=== PATIENT | male | born 1930 | race Caucasian/White ===

== ENCOUNTER → 2016-07-04 | Outpatient (REF) ==
[~2016-07-04] MED LIST: /MEMA10TA PO; ALLO300T2 PO; AMLO10TA2 PO; AMLO25TA PO; APRESOLINE PO; ASPI1TAB PO; ASPI81TA4 PO; ASPI81TAEC PO; BISA10SU PR; CALC0.25 PO; CERETAB PO; CERTTAB3 PO; CLONI1TA TOP; COLA100C PO; COZA50TA PO; DARB100SYR IV; DONETAB5 PO; DONETAB6 PO; ESCI10TA2 PO; ESCI5TAB PO; FEBU40TA PO; FERR325T3 PO; FINA5TAB2 PO; FURO40TA2 PO; GLYB5TAB5 PO; HYDR-4267 PO; HYDR10TAB PO; HYDR25T PO; HYDR50TA PO; IPRA1SOL47 NEB; IPRASOL4 NEB; LEVA250T PO; LOSA100T36 PO; METO-346 PO; METO12TA PO; MILKSUS PO; MIRT15TA3 PO; NAME5TAB13 PO; NEPHTAB PO; RENATAB5 PO; RENV2TAB PO; SENN1TAB2 PO; SIMV40TA2 PO; TAMS0.4C PO; TYLE325T5 PO; VITA100041 PO; nephrovite PO
--- NOTE | 2016-07-04 10:35 | REP ---
PARTIAL LEFT HIP, ONE VIEW: HISTORY: Pain. There is no acute fracture or dislocation. There is narrowing of the joint space with associated osteophyte formation. The bony structure is osteopenic. IMPRESSION: There is no acute fracture or dislocation. Signed by Alessio Delacruz MD 07/04/2016 10:37 A
== END | disposition home or self-care (01) ==
PROVIDERS: ATTEND Internal Medicine
DX: M25.552 Pain in left hip (principal)

== ENCOUNTER → 2016-07-16 | Outpatient (REF) | payer BC, MEDICARE ==
[2016-07-16 09:16] LABS: MEAN CORPUSCULAR HGB CONC 33.5 g/dl (32.0-36.5); MEAN CORPUSCULAR VOLUME 95.4 fl (80.0-96.0); RED CELL DISTRIBUTION WIDTH 14.3 % (11.5-14.5); WHITE BLOOD COUNT 8.1 K/mm3 (4.0-10.0)
[2016-07-16 09:39] LABS: CALCIUM LEVEL 8.7 MG/DL (8.8-10.2); CREATININE FOR GFR 5.87 MG/DL (0.70-1.30); GLOMERULAR FILTRATION RATE 9.8 (>35); POTASSIUM SERUM 4.1 MEQ/L (3.5-5.1)
== END | disposition home or self-care (01) ==
PROVIDERS: ATTEND Internal Medicine
DX: N18.6 End stage renal disease (principal); D63.1 Anemia in chronic kidney disease

== ENCOUNTER → 2016-09-27 | Outpatient (REF) | payer MEDICARE, BC ==
[~2016-09-27] MED LIST changes: +BISA10SU27 PR; -COLA100C PO; +COLA100C3 PO; +ENEM1ENE4 PR; +ENSU-12 PO; +FEVE650S3 PR; +IPRASOL4 INH; +LIDO2.5C15 TOP; +NEPRLIQ3 PO; +RENV0.8P PO; +SENN8.6T54 PO; +VITA100037 PO
== END ==
LOC: M LAB 13:57
PROVIDERS: ATTEND Internal Medicine
DX: N18.6 End stage renal disease (principal); D64.9 Anemia, unspecified

== ENCOUNTER 2016-09-29 14:48 | Observation (INO) | payer MEDICARE, BC ==
[~2016-09-29] VITALS: Ht 172.7 cm; Wt 74.0 kg
[~2016-09-29 14:48] MED LIST changes: -BISA10SU27 PR; -ENEM1ENE4 PR; -ENSU-12 PO; -FEVE650S3 PR; -IPRASOL4 INH; -LIDO2.5C15 TOP; -NEPRLIQ3 PO; -RENV0.8P PO; -SENN8.6T54 PO; -VITA100037 PO
--- NOTE | 2016-09-29 15:29 | REP ---
Portable chest, 03:19 p.m., single AP view, the patient semi upright: There is a right pleural effusion. This has increased in size compared to the portable study of 05/29/2016. The right upper lobe is clear. Left lung is clear. Cardiac size appears enlarged, however there is magnification from portable positioning. Impression: Right pleural effusion. Signed by Ludin Montanez MD 09/29/2016 03:20 P
[2016-09-29 15:30] LABS: BASO # 0.1 K/mm3 (0.0-0.2); BASO % 0.6 % (0.0-1.0); EOS # 0.2 K/mm3 (0.0-0.50); EOS % 1.9 % (0.0-3.0); LARGE UNSTAINED CELL # 0.1 K/mm3 (0.0-0.4); LARGE UNSTAINED CELL % 0.9 % (0.0-4.0); LYMPH % 9.6 % (24.0-44.0); MEAN CORPUSCULAR HEMOGLOBIN 30.7 pg (27.0-33.0); MEAN CORPUSCULAR HGB CONC 32.2 g/dl (32.0-36.5); MEAN CORPUSCULAR VOLUME 95.4 fl (80.0-96.0); MONO # 0.4 K/mm3 (0.0-0.8); MONO % 4.5 % (0.0-5.0); NEUTROPHILS # 7.7 K/mm3 (1.8-7.7); NEUTROPHILS % 82.4 % (36.0-66.0); PLATELET COUNT, AUTOMATED 271 k/mm3 (150-450); RED CELL DISTRIBUTION WIDTH 13.9 % (11.5-14.5); WHITE BLOOD COUNT 9.3 K/mm3 (4.0-10.0)
--- NOTE | 2016-09-29 15:49 | REP ---
CT of the brain without IV contrast: Comparison is 12/06/2013. There is no hemorrhage. There is no edema, mass effect or midline shift. The cortical stripe is unremarkable. The sulci and ventricles are diffusely enlarged, unchanged, compatible with diffuse volume loss. There is opacification of water to ethmoid sinus air cells. The visualized paranasal sinuses and mastoids are otherwise. Impression: There is no hemorrhage, acute infarct or mass. There is chronic diffuse volume loss. This is unchanged. There is opacification of a few ethmoid sinus air cells, compatible with mild sinusitis. Signed by Ludin Montanez MD 09/29/2016 03:40 P
[2016-09-29 15:54] LABS: ALKALINE PHOSPHATASE 139 U/L (45-117); ALT/SGPT 11 U/L (12-78); AST/SGOT 9 U/L (15-37); BILIRUBIN,DIRECT 0.1 MG/DL (0.0-0.2); BILIRUBIN,TOTAL 0.3 MG/DL (0.2-1.0); BLOOD UREA NITROGEN 32 MG/DL (7-18); CALCIUM LEVEL 8.8 MG/DL (8.8-10.2); CARBON DIOXIDE LEVEL 32 MEQ/L (21-32); CHLORIDE LEVEL 97 MEQ/L (98-107); CREATININE FOR GFR 3.63 MG/DL (0.70-1.30); GLUCOSE, FASTING 179 MG/DL (83-110); POTASSIUM SERUM 3.8 MEQ/L (3.5-5.1)
[2016-09-29] MEDS ORDERED: SENN8.6T54 PO (17:09)
[2016-09-29] MEDS ORDERED: HYDR10TAB PO (17:09)
[2016-09-29] MEDS ORDERED: NEPRLIQ3 PO (17:09)
[2016-09-29] MEDS ORDERED: ENSU-12 PO (17:12)
[2016-09-29] MEDS ORDERED: RENV0.8P PO (17:12)
[2016-09-29] MEDS ORDERED: RENATAB5 PO (17:17)
[2016-09-29] MEDS ORDERED: LIDO2.5C15 TOP (17:17)
[2016-09-29] MEDS ORDERED: ASPI81TA4 PO (17:17)
[2016-09-29] MEDS ORDERED: CERTTAB3 PO (17:17)
[2016-09-29] MEDS ORDERED: FINA5TAB2 PO (17:17)
[2016-09-29] MEDS ORDERED: IPRASOL4 INH (17:17)
[2016-09-29] MEDS ORDERED: ENEM1ENE4 PR (17:22)
[2016-09-29] MEDS ORDERED: FEVE650S3 PR (17:22)
[2016-09-29] MEDS ORDERED: VITA100037 PO (17:22)
[2016-09-29] MEDS ORDERED: BISA10SU27 PR (17:22)
[2016-09-29] MEDS ORDERED: TYLE325T5 PO (17:22)
[2016-09-29] MEDS ORDERED: FLEET ENEMA PR PRN (18:30)
[2016-09-29] MEDS ORDERED: IPRATROPIUM 0.5MG/ALBUTEROL 2.5MG INH SOL UD 3ML (DUONEB)(J7620) INH PRN (18:30)
[2016-09-29] MEDS ORDERED: BISACODYL 10 MG SUPP PR PRN (18:30)
--- NOTE | 2016-09-29 18:35 | CR.PDOC ---
[facility] Consultation Consultation HISTORY AND PHYSICAL Date of admission: 09/29/2016 PCP: Dr. Galloway at [facility], but otherwise Dr. Koch Chief complaint: Unresponsive episode at dialysis HPI: 86-year-old male with end-stage renal disease on hemodialysis, chronic diastolic CHF, chronic right-sided pleural effusion, secondary hyperparathyroidism, chronic anemia, hypertension, history of nonsustained V. tach, severe aortic stenosis, dementia, PVD status post femoropopliteal, carotid disease status post endarterectomy, diabetes mellitus type 2, BPH who experienced an unresponsive episode at dialysis. Per report, the patient was approximately two thirds of his way through dialysis, when his thought that he was making funny noises, and called the nurse over. Reportedly, the patient did not report on to a sternal rub, so that nurse began doing compressions. While she was doing compressions, they also opened up the fluids wide open and the patient received 1300 mL. When EMS arrived, his systolic blood pressure was 90. Upon interview with the , she tells me that although he lives at [facility] without her, she is the one who transports him to dialysis. She states that when she picked him up this morning, he was his normal self. He did not have any further episodes in the emergency department. Per his , his mental status seems to be at baseline. Past medical history: end-stage renal disease on hemodialysis, chronic diastolic CHF, chronic right-sided pleural effusion, secondary hyperparathyroidism, chronic anemia, hypertension, history of nonsustained V. tach, severe aortic stenosis, dementia, PVD status post femoropopliteal, carotid disease status post endarterectomy, diabetes mellitus type 2, BPH Past surgical history: AV fistula placement, femoropopliteal, CEA Family history: Bladder and lung cancer Social history: The patient lives at [facility]. He has a remote history of smoking. He does not currently drink. Allergies: No known drug allergies Review of systems: Unable to complete secondary to the patient's severe dementia. Home meds: See below Physical exam: Vital signs: Blood pressure 198/91, HR 86, temperature 97.7, O2 sat 100%, RR Elizabeth Gen.: awake, no acute distress, responds to verbal stimuli Eyes: Extraocular movements intact, normal sclera ENT: Moist mucous membranes Cardiovascular: RRR, harsh systolic murmur Lungs: clear to auscultation bilaterally, no rales, rhonchi, or wheeze Abdomen: Soft, NT/ND, normal BS Extremities: No peripheral edema Neuro: alert and oriented to person only, normal speech; per , this is baseline; the patient follows commands Psych: The patient did not seem to want to participate in the interview, and several times told me know when I asked him a question. He did tell me his full name, but was clearly exasperated that I kept asking him. Labs and radiology: See below CBC, BMP, lactate, ammonia, troponin were all unremarkable. TSH was at the upper limits of normal CT of the head was unremarkable Chest x-ray shows right pleural effusion Blood cultures are pending Assessment and plan: 86-year-old male with end-stage renal disease on hemodialysis, chronic diastolic CHF, chronic right-sided pleural effusion, secondary hyperparathyroidism, chronic anemia, hypertension, history of nonsustained V. tach, severe aortic stenosis, dementia, PVD status post femoropopliteal, carotid disease status post endarterectomy, diabetes mellitus type 2, BPH who experienced an unresponsive episode at dialysis. 1. Altered mental status/unresponsive episode: Upon my interview, the patient seemed to be at baseline, which is confirmed by his . Upon receiving the history from his dialysis episode, it sounds that most likely, he had hypotension secondary to dialysis, and this caused his episode. After receiving over a liter of fluid, his systolic blood pressure was 90 when EMS arrived. At this time, we will monitor the patient in the PCU on telemetry. He'll be closely monitored for any further episodes. We will continue to trend troponins. 2. Hypertension: The patient has a history of chronic hypertension, but appears to have experienced some transient hypotension during dialysis today. His blood pressure in the ER has been around 200 systolic, so at this time, we will resume his home hydralazine. 3. End-stage renal disease on hemodialysis: We will continue the patient's home Renvela. I have consulted Dr. Norton, who has agreed to see the patient tomorrow. 4. Chronic diastolic CHF: The patient currently appears compensated, but we will have to monitor him closely, as he experienced hypotension during dialysis , and subsequently received over a liter of fluid. 5. Chronic right-sided pleural effusion: This is a known issue, and is noted on today's chest x-ray. The does report one prior episode of having this drained. At this time, the patient does not seem to be experiencing any respiratory distress. We will continue to monitor him for such. 6. Dementia: Per the , his mental status is currently at baseline which is more or less oriented only to self. 7. PVD status post femoropopliteal, carotid disease status post CEA: Continue home aspirin. 8. Diabetes mellitus type 2: The confirms that he does have diabetes, but she does not believe he is currently on any medication for it. There are no diabetic medicines on his home med list. At this time, we will use sliding scale insulin as needed. 9. BPH: Continue home Proscar. DVT prophylaxis: Heparin Dispo: Place in observation status on the service of Dr. Lizama CODE STATUS: DNR/DNI, healthcare power of immigration attorney is his Vital Signs/I&O Vital Signs Date Time Temp Pulse Resp B/P Pulse Ox O2 Delivery O2 Flow Rate FiO2 09/29/16 18:23 84 16 100 09/29/16 18:13 185/82 09/29/16 17:23 97.7 09/29/16 15:26 Room Air Laboratory Data Labs 24H Laboratory Tests 2 09/29/16 15:13: Aspartate Amino Transf (AST/SGOT) 9L, Alanine Aminotransferase (ALT/SGPT) 11L, Alkaline Phosphatase 139H, Total Bilirubin 0.3, Direct Bilirubin 0.1, Albumin 3.2, Ammonia 10, White Blood Count 9.3, Red Blood Count 3.63L, Hemoglobin 11.2L , Hematocrit 34.7L, Mean Corpuscular Volume 95.4, Mean Corpuscular Hemoglobin 30.7, Mean Corpuscular Hemoglobin Concent 32.2, Red Cell Distribution Width 13.9 , Platelet Count 271, Neutrophils (%) (Auto) 82.4H, Lymphocytes (%) (Auto) 9.6L , Monocytes (%) (Auto) 4.5, Eosinophils (%) (Auto) 1.9, Basophils (%) (Auto) 0.6 , Neutrophils # (Auto) 7.7, Lymphocytes # (Auto) 1.0L, Monocytes # (Auto) 0.4, Eosinophils # (Auto) 0.2, Basophils # (Auto) 0.1, Calcium Level 8.8, Creatine Kinase MB 1.0, Creatine Kinase MB Relative Index 4.76H, Lactic Acid Level 1.9, Large Unclassified Cells # 0.1, Large Unclassified Cells % 0.9, Thyroid Stimulating Hormone (TSH) 3.820H, Total Creatine Kinase 21L, Total Protein 7.0, Troponin I 0.03 CBC/BMP Laboratory Tests 09/29/16 15:13 Red Blood Count 3.63 L, Mean Corpuscular Volume 95.4, Mean Corpuscular Hemoglobin 30.7, Mean Corpuscular Hemoglobin Concent 32.2, Red Cell Distribution Width 13.9, Neutrophils (%) (Auto) 82.4 H, Lymphocytes (%) (Auto) 9.6 L, Monocytes (%) (Auto) 4.5, Eosinophils (%) (Auto) 1.9, Basophils (%) (Auto ) 0.6, Neutrophils # (Auto) 7.7, Lymphocytes # (Auto) 1.0 L, Monocytes # (Auto) 0.4, Eosinophils # (Auto) 0.2, Basophils # (Auto) 0.1 Microbiology Microbiology 09/29/16 Blood Culture, Received Pending Allergies Coded Allergies: No Known Drug Allergy (Verified Allergy, 11/02/12) Home Medications Scheduled (Nepro with Carb Steady) 1 Liq Liq 240 ML PO 4XWK (Reported) takes at noon on thursday, thursday, , and thursday (Ensure Clear) 1 Liq Liq 200 ML PO 3XW (Reported) thursday, thursday, and thursday (Aspirin EC Low Dose) 81 Mg Tab 81 MG PO DAILY (Reported) (Certavite/Antioxidants) 1 Tab Tab 1 TAB PO DAILY (Reported) (Aniya-Benito) 1 Tab Tab 1 TAB PO DAILY (Reported) (Lidocaine/Prilocaine 2.5-2.5 %) 1 Cre Cre 1 DOSE TOP 3XW (Reported) apply to left arm fistula on thursday, thursday, thursday prior to dialysis Docusate Sod/Senna (Senna-Plus 8.6-50 mg) 1 Tab Tab 2 TAB PO BID (Reported) Finasteride (Finasteride) 5 Mg Tab 5 MG PO DAILY (Reported) Hydralazine HCl (Hydralazine HCl) 10 Mg Tab 10 MG PO BID (Reported) Sevelamer Carbonate (Renvela Oral Suspension) 0.8 Gm Juliocesar 0.8 GM PO WM (Reported ) Vitamin D (Vitamin D) 1,000 Unit Cap 1,000 UNIT PO DAILY (Reported) Scheduled PRN (Enema) 1 Laith Laith 1 LAITH ND DAILYPRN PRN PRN CONSTIPATION (Reported) Acetaminophen (Tylenol) 325 Mg Tab 650 MG PO Q4HP PRN PRN PAIN / FEVER (Reported ) Acetaminophen (Feverall Adults) 650 Mg Sup 650 MG ND Q4HP PRN PRN PAIN / FEVER ( Reported) Albuterol/Ipratropium (Ipratropium [place]/Albut 0.5-2.5 (3) mg/3Ml) 1 June June 1 JUNE INH Q2H PRN PRN SHORTNESS OF BREATH (Reported) Bisacodyl (Bisacodyl Laxative) 10 Mg Sup 10 MG ND DAILYPRN PRN PRN CONSTIPATION (Reported) DANA HUFF Sep 29, 2016 18:35
[2016-09-29] MEDS ORDERED: ACETAMINOPHEN TAB 650MG DOSE (2X325MG) PO ONE (19:15)
[2016-09-29] MEDS: (RENVELA) SEVELAMER **CARBONate** 800 MG TAB PO SCH (20:15)
[2016-09-29] MEDS: HumaLOG INSULIN (NovoLOG) PER UNIT SC SCH ×2 (21:00→22:58)
[2016-09-29] MEDS ORDERED: ONDANSETRON 4 MG TAB (S0181) PO PRN (21:30)
[2016-09-29] MEDS ORDERED: GLUCAGON FOR INJ 1 MG VIAL (J1610) SC PRN (21:30)
[2016-09-29] MEDS ORDERED: ACETAMINOPHEN TAB 650MG DOSE (2X325MG) PO PRN (21:30)
[2016-09-29] MEDS ORDERED: DEXTROSE 50% 50 ML SYRINGE IV PRN (21:30)
[2016-09-29] MEDS ORDERED: GLUCOSE 4 GM CHEW TABLET PO PRN (21:30)
[2016-09-29] MEDS ORDERED: ONDANSETRON 4MG/2ML VIAL (J2405) IV PRN (21:30)
--- NOTE | 2016-09-29 21:41 | HPEPDOC ---
Medical History and Physical Date of Admission Sep 29, 2016 at 21:27 History and Physical HISTORY AND PHYSICAL Date of admission: 09/29/2016 PCP: Dr. Galloway at [facility], but otherwise Dr. Koch Chief complaint: Unresponsive episode at dialysis HPI: 86-year-old male with end-stage renal disease on hemodialysis, chronic diastolic CHF, chronic right-sided pleural effusion, secondary hyperparathyroidism, chronic anemia, hypertension, history of nonsustained V. tach, severe aortic stenosis, dementia, PVD status post femoropopliteal, carotid disease status post endarterectomy, diabetes mellitus type 2, BPH who experienced an unresponsive episode at dialysis. Per report, the patient was approximately two thirds of his way through dialysis, when his thought that he was making funny noises, and called the nurse over. Reportedly, the patient did not report on to a sternal rub, so that nurse began doing compressions. While she was doing compressions, they also opened up the fluids wide open and the patient received 1300 mL. When EMS arrived, his systolic blood pressure was 90. Upon interview with the , she tells me that although he lives at [facility] without her, she is the one who transports him to dialysis. She states that when she picked him up this morning, he was his normal self. He did not have any further episodes in the emergency department. Per his , his mental status seems to be at baseline. Past medical history: end-stage renal disease on hemodialysis, chronic diastolic CHF, chronic right-sided pleural effusion, secondary hyperparathyroidism, chronic anemia, hypertension, history of nonsustained V. tach, severe aortic stenosis, dementia, PVD status post femoropopliteal, carotid disease status post endarterectomy, diabetes mellitus type 2, BPH Past surgical history: AV fistula placement, femoropopliteal, CEA Family history: Bladder and lung cancer Social history: The patient lives at [facility]. He has a remote history of smoking. He does not currently drink. Allergies: No known drug allergies Review of systems: Unable to complete secondary to the patient's severe dementia. Home meds: See below Physical exam: Vital signs: Blood pressure 198/91, HR 86, temperature 97.7, O2 sat 100%, RR Elizabeth Gen.: awake, no acute distress, responds to verbal stimuli Eyes: Extraocular movements intact, normal sclera ENT: Moist mucous membranes Cardiovascular: RRR, harsh systolic murmur Lungs: clear to auscultation bilaterally, no rales, rhonchi, or wheeze Abdomen: Soft, NT/ND, normal BS Extremities: No peripheral edema Neuro: alert and oriented to person only, normal speech; per , this is baseline; the patient follows commands Psych: The patient did not seem to want to participate in the interview, and several times told me know when I asked him a question. He did tell me his full name, but was clearly exasperated that I kept asking him. Labs and radiology: See below CBC, BMP, lactate, ammonia, troponin were all unremarkable. TSH was at the upper limits of normal CT of the head was unremarkable Chest x-ray shows right pleural effusion Blood cultures are pending Assessment and plan: 86-year-old male with end-stage renal disease on hemodialysis, chronic diastolic CHF, chronic right-sided pleural effusion, secondary hyperparathyroidism, chronic anemia, hypertension, history of nonsustained V. tach, severe aortic stenosis, dementia, PVD status post femoropopliteal, carotid disease status post endarterectomy, diabetes mellitus type 2, BPH who experienced an unresponsive episode at dialysis. 1. Altered mental status/unresponsive episode: Upon my interview, the patient seemed to be at baseline, which is confirmed by his . Upon receiving the history from his dialysis episode, it sounds that most likely, he had hypotension secondary to dialysis, and this caused his episode. After receiving over a liter of fluid, his systolic blood pressure was 90 when EMS arrived. At this time, we will monitor the patient in the PCU on telemetry. He'll be closely monitored for any further episodes. We will continue to trend troponins. 2. Hypertension: The patient has a history of chronic hypertension, but appears to have experienced some transient hypotension during dialysis today. His blood pressure in the ER has been around 200 systolic, so at this time, we will resume his home hydralazine. 3. End-stage renal disease on hemodialysis: We will continue the patient's home Renvela. I have consulted Dr. Norton, who has agreed to see the patient tomorrow. 4. Chronic diastolic CHF: The patient currently appears compensated, but we will have to monitor him closely, as he experienced hypotension during dialysis , and subsequently received over a liter of fluid. 5. Chronic right-sided pleural effusion: This is a known issue, and is noted on today's chest x-ray. The does report one prior episode of having this drained. At this time, the patient does not seem to be experiencing any respiratory distress. We will continue to monitor him for such. 6. Dementia: Per the , his mental status is currently at baseline which is more or less oriented only to self. 7. PVD status post femoropopliteal, carotid disease status post CEA: Continue home aspirin. 8. Diabetes mellitus type 2: The confirms that he does have diabetes, but she does not believe he is currently on any medication for it. There are no diabetic medicines on his home med list. At this time, we will use sliding scale insulin as needed. 9. BPH: Continue home Proscar. DVT prophylaxis: Heparin Dispo: Place in observation status on the service of Dr. Lizama CODE STATUS: DNR/DNI, healthcare power of securities attorney is his Vital Signs see above Laboratory Data Labs 24H Laboratory Tests 2 09/29/16 15:13: Aspartate Amino Transf (AST/SGOT) 9L, Alanine Aminotransferase (ALT/SGPT) 11L, Alkaline Phosphatase 139H, Total Bilirubin 0.3, Direct Bilirubin 0.1, Albumin 3.2, Ammonia 10, White Blood Count 9.3, Red Blood Count 3.63L, Hemoglobin 11.2L , Hematocrit 34.7L, Mean Corpuscular Volume 95.4, Mean Corpuscular Hemoglobin 30.7, Mean Corpuscular Hemoglobin Concent 32.2, Red Cell Distribution Width 13.9 , Platelet Count 271, Neutrophils (%) (Auto) 82.4H, Lymphocytes (%) (Auto) 9.6L , Monocytes (%) (Auto) 4.5, Eosinophils (%) (Auto) 1.9, Basophils (%) (Auto) 0.6 , Neutrophils # (Auto) 7.7, Lymphocytes # (Auto) 1.0L, Monocytes # (Auto) 0.4, Eosinophils # (Auto) 0.2, Basophils # (Auto) 0.1, Calcium Level 8.8, Creatine Kinase MB 1.0, Creatine Kinase MB Relative Index 4.76H, Lactic Acid Level 1.9, Large Unclassified Cells # 0.1, Large Unclassified Cells % 0.9, Thyroid Stimulating Hormone (TSH) 3.820H, Total Creatine Kinase 21L, Total Protein 7.0, Troponin I 0.03 CBC/BMP Laboratory Tests 09/29/16 15:13 Red Blood Count 3.63 L, Mean Corpuscular Volume 95.4, Mean Corpuscular Hemoglobin 30.7, Mean Corpuscular Hemoglobin Concent 32.2, Red Cell Distribution Width 13.9, Neutrophils (%) (Auto) 82.4 H, Lymphocytes (%) (Auto) 9.6 L, Monocytes (%) (Auto) 4.5, Eosinophils (%) (Auto) 1.9, Basophils (%) (Auto ) 0.6, Neutrophils # (Auto) 7.7, Lymphocytes # (Auto) 1.0 L, Monocytes # (Auto) 0.4, Eosinophils # (Auto) 0.2, Basophils # (Auto) 0.1 Microbiology Microbiology 09/29/16 Blood Culture, Received Pending Home Medications Scheduled (Nepro with Carb Steady) 1 Liq Liq 240 ML PO 4XWK takes at noon on thursday, thursday, , and thursday (Ensure Clear) 1 Liq Liq 200 ML PO 3XW thursday, thursday, and thursday (Aspirin EC Low Dose) 81 Mg Tab 81 MG PO DAILY (Certavite/Antioxidants) 1 Tab Tab 1 TAB PO DAILY (Aniya-Benito) 1 Tab Tab 1 TAB PO DAILY (Lidocaine/Prilocaine 2.5-2.5 %) 1 Cre Cre 1 DOSE TOP 3XW apply to left arm fistula on thursday, thursday, thursday prior to dialysis Docusate Sod/Senna (Senna-Plus 8.6-50 mg) 1 Tab Tab 2 TAB PO BID Finasteride (Finasteride) 5 Mg Tab 5 MG PO DAILY Hydralazine HCl (Hydralazine HCl) 10 Mg Tab 10 MG PO BID Sevelamer Carbonate (Renvela Oral Suspension) 0.8 Gm Juliocesar 0.8 GM PO WM Vitamin D (Vitamin D) 1,000 Unit Cap 1,000 UNIT PO DAILY Scheduled PRN (Enema) 1 Laith Laith 1 LAITH NM DAILYPRN PRN PRN CONSTIPATION Acetaminophen (Tylenol) 325 Mg Tab 650 MG PO Q4HP PRN PRN PAIN / FEVER Acetaminophen (Feverall Adults) 650 Mg Sup 650 MG NM Q4HP PRN PRN PAIN / FEVER Albuterol/Ipratropium (Ipratropium [place]/Albut 0.5-2.5 (3) mg/3Ml) 1 June [place] 1 JUNE INH Q2H PRN PRN SHORTNESS OF BREATH Bisacodyl (Bisacodyl Laxative) 10 Mg Sup 10 MG NM DAILYPRN PRN PRN CONSTIPATION Allergies Coded Allergies: No Known Drug Allergy (Verified Allergy, 11/02/12) DANA HUFF Sep 29, 2016 21:41
--- NOTE | 2016-09-29 21:55 | ECGEPIP ---
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
[2016-09-29 22:13] LABS: ANION GAP 9 MEQ/L (8-16); SODIUM LEVEL 138 MEQ/L (136-145)
[2016-09-29 22:14] LABS: ALBUMIN 3.2 GM/DL (3.2-5.2); ALBUMIN/GLOBULIN RATIO 0.84 (1.00-1.93)
[2016-09-30] MEDS: SENOKOT S TAB PO SCH ×3 (00:08→21:15)
[2016-09-30] MEDS: **hydrALAZINE** 10 MG TAB PO SCH ×3 (00:09→20:14)
[2016-09-30 06:07] LABS: BASO % 0.7 % (0.0-1.0); EOS # 0.2 K/mm3 (0.0-0.50); EOS % 2.6 % (0.0-3.0); LARGE UNSTAINED CELL # 0.1 K/mm3 (0.0-0.4); LARGE UNSTAINED CELL % 1.1 % (0.0-4.0); LYMPH # 1.3 K/mm3 (1.5-4.5); LYMPH % 17.6 % (24.0-44.0); MEAN CORPUSCULAR HGB CONC 32.8 g/dl (32.0-36.5); MEAN CORPUSCULAR VOLUME 94.6 fl (80.0-96.0); MONO # 0.4 K/mm3 (0.0-0.8); MONO % 6.1 % (0.0-5.0); NEUTROPHILS # 4.9 K/mm3 (1.8-7.7); NEUTROPHILS % 71.9 % (36.0-66.0); PLATELET COUNT, AUTOMATED 251 k/mm3 (150-450); WHITE BLOOD COUNT 6.8 K/mm3 (4.0-10.0)
[2016-09-30 06:22] LABS: CREATININE FOR GFR 4.84 MG/DL (0.70-1.30); FREE T4 1.08 NG/DL (0.76-1.46); GLOMERULAR FILTRATION RATE 12.2 (>35); MAGNESIUM LEVEL 2.4 MG/DL (1.8-2.4); POTASSIUM SERUM 4.1 MEQ/L (3.5-5.1)
[2016-09-30 08:00] VITALS: BP 196/82
[2016-09-30] MEDS: HEPARIN SOD (PORCINE) 5000 UNITS/ML VIAL SQ SCH ×2 (09:06→21:16)
[2016-09-30] MEDS: (RENVELA) SEVELAMER **CARBONate** 800 MG TAB PO SCH ×3 (09:06→16:59)
[2016-09-30] MEDS: ASPIRIN 81 MG ENTERIC TAB PO SCH (09:07)
[2016-09-30] MEDS: FINASTERIDE 5 MG TAB PO SCH (09:10)
[2016-09-30] MEDS: HumaLOG INSULIN (NovoLOG) PER UNIT SC SCH ×4 (09:12→21:00)
[2016-09-30] MEDS: OCUVITE 1 TAB PO SCH (11:52)
[2016-09-30 16:10] VITALS: BP 198/83
[2016-09-30 16:15] VITALS: BP 182/72
[2016-09-30] MEDS ORDERED: **hydrALAZINE** 10 MG TAB PO ONE (16:30)
--- NOTE | 2016-09-30 16:44 | IPNPDOC ---
Subjective Date Seen The patient was seen on 09/30/16. Subjective Chief Complaint/HPI The patient is a 86-year-old male admitted with a reason for visit of [facility]. General: Denies: Chills, Night Sweats Constitutional: Denies: Chills, Fever Eyes: Denies: Pain, Vision change ENT: Denies: Ear Pain, Head Aches Skin: Denies: Lesions, Rash Pulmonary: Denies: Cough, Dyspnea Cardiovascular: Denies: Chest Pain, Palpitations Gastrointestinal: Denies: Nausea, Vomiting Genitourinary: Denies: Dysuria, Frequency Hematologic: Denies: Bleeding Excessively, Bruising Objective Physical Examination General Exam: Positive: Alert, Cooperative, No Acute Distress ENT Exam: Positive: Atraumatic, Mucous membr. moist/pink Neck Exam: Negative: JVD Chest Exam: Positive: Clear to auscultation, Normal air movement Heart Exam: Positive: Normal S1, Normal S2, Rate Normal Abdomen Exam: Positive: Soft, Negative: Tenderness Extremity Exam: Negative: Swelling, Tenderness Assessment /Plan Plan/VTE VTE Prophylaxis Ordered?: Yes Plan Altered mental status/Unresponsive episode likely 2/2 Transient Hypotension during Dialysis Session s/p IVF Hydration CT Scan of the Head with no acute findings No signs or overt sources of infection noted at this time Patient back to normal mental baseline at this time Hypertension, stable Cont hydralazine 10mg BID End-stage renal disease on hemodialysis Continue Renvela. Nephro consulted on admission. Chronic diastolic CHF, stable Appears Euvolemic at this time Will follow through with regularly scheduled dialysis session(s) Nephro on board Chronic right-sided pleural effusion, stable The patient is breathing comfortably on room air, and is without any acute complaints at this time Will continue to monitor Dementia Patient back to baseline PVD status post femoropopliteal, Carotid disease status post CEA Continue aspirin. Diabetes mellitus type 2 Cont Insulin Sliding Scale BPH Continue Proscar. DVT prophylaxis Heparin SQ Dispo: To be transferred back to [facility] tomorrow afternoon CODE STATUS: DNR/DNI VS, I&O, 24H, Fishbone Vital Signs/I&O Vital Signs Date Time Temp Pulse Resp B/P Pulse Ox O2 Delivery O2 Flow Rate FiO2 09/30/16 16:31 182/72 09/30/16 12:00 96.8 70 19 98 Room Air 09/29/16 23:01 2 I&O- Last 24 Hours up to 6 AM 09/30/16 06:00 Intake Total 0 ml Output Total 0 ml Balance 0 ml Laboratory Data 24H LABS Laboratory Tests 2 09/29/16 22:54: Bedside Glucose (Misc Panel) 195H 09/30/16 05:28: Anion Gap 8, White Blood Count 6.8, Red Blood Count 3.00L, Hemoglobin 9.3L, Hematocrit 28.4L, Mean Corpuscular Volume 94.6, Mean Corpuscular Hemoglobin 31.0 , Mean Corpuscular Hemoglobin Concent 32.8, Red Cell Distribution Width 14.0, Platelet Count 251, Neutrophils (%) (Auto) 71.9H, Lymphocytes (%) (Auto) 17.6L, Monocytes (%) (Auto) 6.1H, Eosinophils (%) (Auto) 2.6, Basophils (%) (Auto) 0.7 , Neutrophils # (Auto) 4.9, Lymphocytes # (Auto) 1.3L, Monocytes # (Auto) 0.4, Eosinophils # (Auto) 0.2, Basophils # (Auto) 0.0, Blood Urea Nitrogen 41H, Creatinine 4.84H, Sodium Level 137, Potassium Level 4.1, Chloride Level 98, Carbon Dioxide Level 31, Calcium Level 8.0L, Total Creatine Kinase 29L, Creatine Kinase MB 1.0, Creatine Kinase MB Relative Index 3.44, Free Thyroxine 1.08, Glomerular Filtration Rate 12.2L, Large Unclassified Cells # 0.1, Large Unclassified Cells % 1.1, Magnesium Level 2.4, Troponin I 0.04# 09/30/16 13:09: Total Creatine Kinase 19L, Creatine Kinase MB 1.1, Creatine Kinase MB Relative Index 5.78H, Troponin I 0.03# CBC/BMP Laboratory Tests 09/30/16 05:28 Calcium Level 8.0 L, Total Creatine Kinase 29 L, Red Blood Count 3.00 L, Mean Corpuscular Volume 94.6, Mean Corpuscular Hemoglobin 31.0, Mean Corpuscular Hemoglobin Concent 32.8, Red Cell Distribution Width 14.0, Neutrophils (%) (Auto ) 71.9 H, Lymphocytes (%) (Auto) 17.6 L, Monocytes (%) (Auto) 6.1 H, Eosinophils (%) (Auto) 2.6, Basophils (%) (Auto) 0.7, Neutrophils # (Auto) 4.9, Lymphocytes # (Auto) 1.3 L, Monocytes # (Auto) 0.4, Eosinophils # (Auto) 0.2, Basophils # (Auto) 0.0 Microbiology Microbiology 09/29/16 Blood Culture - Preliminary, Resulted No growth after 24 hours . All specim... GENO MATA MD Sep 30, 2016 16:44
[2016-09-30 20:00] VITALS: BP 174/76
[2016-09-30 23:59] VITALS: BP 182/70
[2016-10-01 04:00] VITALS: BP 165/74
[2016-10-01 06:07] LABS: CALCIUM LEVEL 8.4 MG/DL (8.8-10.2); CREATININE FOR GFR 5.86 MG/DL (0.70-1.30); GLOMERULAR FILTRATION RATE 9.8 (>35); MAGNESIUM LEVEL 2.4 MG/DL (1.8-2.4); POTASSIUM SERUM 4.2 MEQ/L (3.5-5.1)
[2016-10-01 06:27] LABS: BASO # 0.1 K/mm3 (0.0-0.2); BASO % 1.1 % (0.0-1.0); EOS # 0.3 K/mm3 (0.0-0.50); EOS % 3.9 % (0.0-3.0); LARGE UNSTAINED CELL # 0.1 K/mm3 (0.0-0.4); LARGE UNSTAINED CELL % 1.8 % (0.0-4.0); LYMPH # 1.3 K/mm3 (1.5-4.5); MEAN CORPUSCULAR HEMOGLOBIN 31.6 pg (27.0-33.0); MEAN CORPUSCULAR HGB CONC 33.2 g/dl (32.0-36.5); MONO # 0.5 K/mm3 (0.0-0.8); MONO % 6.3 % (0.0-5.0); NEUTROPHILS # 4.9 K/mm3 (1.8-7.7); NEUTROPHILS % 69.8 % (36.0-66.0); PLATELET COUNT, AUTOMATED 239 k/mm3 (150-450); RED CELL DISTRIBUTION WIDTH 13.8 % (11.5-14.5); WHITE BLOOD COUNT 7.1 K/mm3 (4.0-10.0)
[2016-10-01] MEDS: (RENVELA) SEVELAMER **CARBONate** 800 MG TAB PO SCH ×2 (06:30→14:00)
[2016-10-01] MEDS: FINASTERIDE 5 MG TAB PO SCH (06:32)
[2016-10-01] MEDS: HEPARIN SOD (PORCINE) 5000 UNITS/ML VIAL SQ SCH (06:32)
[2016-10-01 06:33] VITALS: BP 182/81
[2016-10-01] MEDS: **hydrALAZINE** 10 MG TAB PO SCH (06:33)
--- NOTE | 2016-10-01 07:53 | CR ---
DATE OF CONSULTATION: 09/30/2016 REQUESTING PHYSICIAN: Dr. Kyle Lizama CONSULTING PHYSICIAN: Dr. Norton REASON FOR CONSULTATION: Management of end stage renal disease and hemodialysis. CHIEF COMPLAINT: The patient was sent to the emergency room from the dialysis center after he was found to be unresponsive during dialysis. HISTORY OF PRESENT ILLNESS: Mr. Miranda is an 86-year-old male with past medical history of end stage renal disease on hemodialysis every Thursday, Thursday and Thursday, history of diastolic congestive heart failure, dementia, along with chronic right sided pleural effusion and multiple other comorbidities as mentioned below. The patient was getting dialyzed yesterday and suddenly during hemodialysis he was found to be unresponsive. The patient got some chest compressions and sternal rub from the nurse. He was given wide open IV fluids during resuscitation. Around 1.3 liters of fluid was given. EMS was called. When EMS arrived, his systolic blood pressure was around 90. The patient was brought to the emergency room for further evaluation. When I saw the patient in the afternoon, he was awake and alert and sitting in the sofa. He is unable to provide any reliable history because he has dementia. PAST MEDICAL HISTORY: 1. End stage renal disease on hemodialysis every Thursday, Thursday and Thursday. 2. Chronic diastolic congestive heart failure. 3. Chronic right sided pleural effusion. 4. Anemia and end stage renal disease. 5. Secondary hyperparathyroidism. 6. Hypertension. 7. History of severe aortic stenosis. 8. Dementia. 9. Peripheral vascular disease status post femoral-popliteal bypass. 10. History of carotid stenosis. 11. Diabetes mellitus type 2. 12. Benign prostatic hypertrophy (BPH). PAST SURGICAL HISTORY: 1. Status post AV fistula placement. 2. Status post femoral-popliteal bypass. ALLERGIES: No known drug allergies. CURRENT INPATIENT MEDICATIONS: (Patient's inpatient medications include) - Tylenol as needed - DuoNeb as needed - aspirin 81 mg - Dulcolax 10 mg as needed - Senokot two tablets twice a day - Proscar 5 mg by mouth daily - heparin 5000 subcutaneous every 12 - hydralazine 10 mg by mouth twice a day - insulin sliding scale - Zofran 4 mg as needed - Renvela 800 mg by mouth with meals - Fleet enema as needed for constipation FAMILY HISTORY: I was unable to obtain any family history from the patient. SOCIAL HISTORY: The patient is a resident of [facility]. No recent history of drinking, smoking or drug abuse. REVIEW OF SYSTEMS: I was unable to take any review of systems from this patient. He is pleasantly demented, sitting in the chair and unable to communicate. PHYSICAL EXAMINATION: GENERAL: The patient is awake, alert, oriented times one, sitting in the sofa in no apparent distress. VITAL SIGNS: Temperature 98 degrees Fahrenheit. Blood pressure 182/70. Pulse 72. Respiratory rate 18. Saturating 99% on room air. INTAKE AND OUTPUT: Urine output is not recorded. Weight on the bed scale is 72.8 kg. HEAD AND NECK EXAM: Extraocular muscles intact. Pupils equally round and reactive to light. Neck is supple. There is no jugular venous distention. CARDIOVASCULAR: The patient had a grade 3/6 systolic ejection murmur. RESPIRATORY: Clear to auscultation bilaterally. Bilateral equal air entry. No rales or rhonchi. ABDOMEN: Soft. Positive bowel sounds. Nontender. No ascites. No organomegaly. EXTREMITIES: No clubbing or cyanosis. Pulses are 2+. CENTRAL NERVOUS SYSTEM: Patient is awake, alert, oriented to himself only. Otherwise no focal neurological deficit. Moves all four extremities. PSYCHIATRIC: Patient has very pleasant dementia and cooperative during the exam. LAB REVIEW: CBC showed a WBC of 6.8, hemoglobin 9.3, and platelets 251. BMP showed sodium 137, potassium 4.1, chloride 98, bicarbonate 31, BUN 41, creatinine 4.8, calcium 8, troponin 0.04. MICROBIOLOGY: Cultures are pending so far. IMAGING: A chest x-ray done yesterday showed cardiomegaly and right pleural effusion. CT of the head done yesterday showed no acute intracranial pathology. ASSESSMENT: 86-year-old male with past medical history of hypertension, severe aortic stenosis, right sided pleural effusion, and end stage renal disease on hemodialysis admitted at this time because of unresponsiveness during hemodialysis. PLAN: 1. Unresponsiveness during hemodialysis. Most likely the patient had a hypotensive episode during dialysis. He has severe aortic stenosis and ultrafiltration during hemodialysis might have contributed to that. The patient is currently asymptomatic. Continue to trend troponin. CAT scan is normal. The patient is having PVCs on the telemetry at this time. 2. End stage renal disease on hemodialysis. No urgent need of hemodialysis today. The patient will be dialyzed tomorrow. 3. Hypertension. Continue current dose of hydralazine. I would not aggressively manage the high blood pressure at this time because the patient just was found unresponsive yesterday. 4. Chronic diastolic congestive heart failure. It is well compensated at this time. No signs of fluid overload. Ultrafiltration will be done during hemodialysis. 5. Anemia and end stage renal disease. Hemoglobin is 9.3 which is suboptimal at this time. The patient will get a dose of Aranesp with hemodialysis tomorrow. Thank you for involving us in the care of this patient. We shall be happy to follow the patient along with you tomorrow morning.
[2016-10-01 08:00] VITALS: BP 180/82
[2016-10-01] MEDS: HumaLOG INSULIN (NovoLOG) PER UNIT SC SCH ×2 (08:50→14:01)
[2016-10-01] MEDS ORDERED: HEPARIN 1,000 UNITS/ML 10ML VIAL (FOR RADIOLOGY& DIALYSIS ONLY) IV ONE (11:00)
[2016-10-01] MEDS ORDERED: HEPARIN 1,000 UNITS/ML 10ML VIAL (FOR RADIOLOGY& DIALYSIS ONLY) XX ONE (11:00)
[2016-10-01] MEDS: ASPIRIN 81 MG ENTERIC TAB PO SCH (13:59)
[2016-10-01] MEDS: OCUVITE 1 TAB PO SCH (14:00)
[2016-10-01] MEDS: SENOKOT S TAB PO SCH (14:00)
--- NOTE | 2016-10-01 15:39 | DS.PDOC ---
Discharge Summary General Date of Admission Sep 29, 2016 at 21:27 Date of Discharge Oct 01, 2016 at 15:25 Specialist/Consultants Involve: RASHAD GONZALEZ MD Discharge Summary PROCEDURES PERFORMED DURING STAY: None. ADMITTING DIAGNOSES: 1. . Unresponsive episode likely secondary to transient hypotension during dialysis DISCHARGE DIAGNOSES: 1. . Unresponsive episode likely secondary to transient hypotension during dialysis COMPLICATIONS/CHIEF COMPLAINT: AMS. HISTORY OF PRESENT ILLNESS: . 86-year-old male with past medical history of end-stage renal disease on hemodialysis Mondays, Wednesdays, Fridays, chronic diastolic heart failure, chronic right-sided pleural effusion, anemia secondary to end-stage renal disease, secondary hyperparathyroidism, hypertension, aortic stenosis, peripheral vascular disease status post femoropopliteal bypass, diabetes, and BPH presented to the ER after he was noted to have an unresponsive event during dialysis on 09/29. The patient was found to have a systolic blood pressure around 90, he was given IV fluid hydration at the time, and he subsequently returned back to his normal mentation status. History was limited during the episode given the patient's underlying dementia. However the patient denied any acute complaints of fevers, chills, chest pain, palpitations, shortness of breath, abdominal pain, or any nausea/vomiting/diarrhea. A CT scan of the head revealed no acute findings. During the patient's hospitalization here, he was monitored on telemetry, and there were no acute events noted during his stay here. The patient's transient episode of unresponsiveness was likely secondary to hypotension during dialysis. The patient has not had any further events of hypotension here. The patient was dialyzed this morning, and appears to be doing much better. The patient will be transferred back to [facility] today, and he can resume his regularly scheduled dialysis sessions on Mondays, Wednesdays, and Fridays. DISCHARGE MEDICATIONS: Please see below. ALLERGIES: Please see below. PHYSICAL EXAMINATION ON DISCHARGE: VITAL SIGNS: Please see below. General Exam: Positive: Alert, Cooperative, No Acute Distress ENT Exam: Positive: Atraumatic, Mucous membr. moist/pink Neck Exam: Negative: JVD Chest Exam: Positive: Clear to auscultation, Normal air movement Heart Exam: Positive: Normal S1, Normal S2, Rate Normal Abdomen Exam: Positive: Soft, Negative: Tenderness Extremity Exam: Negative: Swelling, Tenderness LABORATORY DATA: Please see below. IMAGING: CT of the brain without IV contrast: Comparison is 12/06/2013. There is no hemorrhage. There is no edema, mass effect or midline shift. The cortical stripe is unremarkable. The sulci and ventricles are diffusely enlarged, unchanged, compatible with diffuse volume loss. There is opacification of water to ethmoid sinus air cells. The visualized paranasal sinuses and mastoids are otherwise. Impression: There is no hemorrhage, acute infarct or mass. There is chronic diffuse volume loss. This is unchanged. There is opacification of a few ethmoid sinus air cells, compatible with mild sinusitis. PROGNOSIS: Long-term prognosis poor given her multiple medical comorbidities ACTIVITY: As tolerated. DIET: . 2 g low sodium diet DISCHARGE PLAN: DISPOSITION: [facility]. DISCHARGE INSTRUCTIONS: 1. . Follow-up with primary care physician within 5-7 days, and continue his regularly scheduled dialysis sessions on Mondays, Wednesdays, and Fridays ITEMS TO FOLLOWUP ON ON OUTPATIENT: 1. . Follow up with primary care physician DISCHARGE CONDITION: Stable. TIME SPENT ON DISCHARGE: Greater than 30 minutes. Vital Signs/I&Os Vital Signs Date Time Temp Pulse Resp B/P Pulse Ox O2 Delivery O2 Flow Rate FiO2 10/01/16 08:15 Room Air 10/01/16 08:00 98.1 67 18 180/82 98 09/29/16 23:01 2 I&O- Last 24 Hours up to 6 AM 10/01/16 05:59 Intake Total 720 ml Output Total 0 ml Balance 720 ml Laboratory Data Labs 24H Laboratory Tests 2 09/30/16 16:55: Bedside Glucose (Misc Panel) 83 09/30/16 21:09: Bedside Glucose (Misc Panel) 188H 10/01/16 05:29: Anion Gap 9, Blood Urea Nitrogen 52H, Creatinine 5.86H, Sodium Level 136, Potassium Level 4.2, Chloride Level 98, Carbon Dioxide Level 29, Calcium Level 8.4L, Glomerular Filtration Rate 9.8L, Magnesium Level 2.4 10/01/16 05:30: White Blood Count 7.1, Red Blood Count 3.21L, Hemoglobin 10.1L, Hematocrit 30.4L , Mean Corpuscular Volume 95.0, Mean Corpuscular Hemoglobin 31.6, Mean Corpuscular Hemoglobin Concent 33.2, Red Cell Distribution Width 13.8, Platelet Count 239, Neutrophils (%) (Auto) 69.8H, Lymphocytes (%) (Auto) 17.0L, Monocytes (%) (Auto) 6.3H, Eosinophils (%) (Auto) 3.9H, Basophils (%) (Auto) 1.1H, Neutrophils # (Auto) 4.9, Lymphocytes # (Auto) 1.3L, Monocytes # (Auto) 0.5, Eosinophils # (Auto) 0.3, Basophils # (Auto) 0.1, Large Unclassified Cells # 0.1, Large Unclassified Cells % 1.8 10/01/16 13:52: Bedside Glucose (Misc Panel) 105 CBC/BMP Laboratory Tests 10/01/16 05:29 Calcium Level 8.4 L 10/01/16 05:30 Red Blood Count 3.21 L, Mean Corpuscular Volume 95.0, Mean Corpuscular Hemoglobin 31.6, Mean Corpuscular Hemoglobin Concent 33.2, Red Cell Distribution Width 13.8, Neutrophils (%) (Auto) 69.8 H, Lymphocytes (%) (Auto) 17.0 L, Monocytes (%) (Auto) 6.3 H, Eosinophils (%) (Auto) 3.9 H, Basophils (%) (Auto) 1.1 H, Neutrophils # (Auto) 4.9, Lymphocytes # (Auto) 1.3 L, Monocytes # (Auto) 0.5, Eosinophils # (Auto) 0.3, Basophils # (Auto) 0.1 FSBS Laboratory Tests Test 09/30/16 16:55 09/30/16 21:09 10/01/16 13:52 Range/Units Bedside Glucose (Misc Panel) 83 188 105 83-110 MG/DL Microbiology Microbiology 09/29/16 Blood Culture - Preliminary, Resulted No Growth after 48 hours. All Specime... Discharge Medications Scheduled (Nepro with Carb Steady) 1 Liq Liq 240 ML PO 4XWK (Reported) takes at noon on thursday, thursday, , and thursday (Ensure Clear) 1 Liq Liq 200 ML PO 3XW (Reported) thursday, thursday, and thursday (Aspirin EC Low Dose) 81 Mg Tab 81 MG PO DAILY (Reported) (Certavite/Antioxidants) 1 Tab Tab 1 TAB PO DAILY (Reported) (Aniya-Benito) 1 Tab Tab 1 TAB PO DAILY (Reported) (Lidocaine/Prilocaine 2.5-2.5 %) 1 Cre Cre 1 DOSE TOP 3XW (Reported) apply to left arm fistula on thursday, thursday, thursday prior to dialysis Docusate Sod/Senna (Senna-Plus 8.6-50 mg) 1 Tab Tab 2 TAB PO BID (Reported) Finasteride (Finasteride) 5 Mg Tab 5 MG PO DAILY (Reported) Hydralazine HCl (Hydralazine HCl) 10 Mg Tab 10 MG PO BID (Reported) Sevelamer Carbonate (Renvela Oral Suspension) 0.8 Gm Juliocesar 0.8 GM PO WM (Reported ) Vitamin D (Vitamin D) 1,000 Unit Cap 1,000 UNIT PO DAILY (Reported) Scheduled PRN (Enema) 1 Laith Laith 1 LAITH WI DAILYPRN PRN PRN CONSTIPATION (Reported) Acetaminophen (Tylenol) 325 Mg Tab 650 MG PO Q4HP PRN PRN PAIN / FEVER (Reported ) Albuterol/Ipratropium (Ipratropium [place]/Albut 0.5-2.5 (3) mg/3Ml) 1 June June 1 JUNE INH Q2H PRN PRN SHORTNESS OF BREATH (Reported) Bisacodyl (Bisacodyl Laxative) 10 Mg Sup 10 MG WI DAILYPRN PRN PRN CONSTIPATION (Reported) Allergies Coded Allergies: No Known Drug Allergy (Verified Allergy, 11/02/12) GENO MATA MD Oct 01, 2016 15:39
--- NOTE | 2016-10-02 06:13 | IPN ---
DATE: 10/01/2016 SUBJECTIVE: Patient was seen and examined at the bedside today in the morning during hemodialysis. He was tolerating the hemodialysis procedure well. The last 24 hour events were noted. There was no more episodes of hypotension. REVIEW OF SYSTEMS: Patient has a pleasant dementia. He is unable to provide any review of systems, but he is asymptomatic at this time. OBJECTIVE: VITAL SIGNS: Temperature 98.5 degrees Fahrenheit. Blood pressure 180/82. Pulse 67. Respiratory rate 18. Saturating 98% on room air. INTAKE AND OUTPUT: Urine output is not recorded. Weight on the bed scale is 74 kg. PHYSICAL EXAM: GENERAL: Patient is awake, alert and oriented times one laying in the bed getting hemodialysis. No apparent distress at this time. HEAD AND NECK EXAM: Extraocular muscles intact. Pupils equally round and reactive to light. Neck is supple. There is no jugular venous distention. CARDIOVASCULAR: The patient has a grade 3/6 systolic ejection murmur because of aortic stenosis. RESPIRATORY: Clear to auscultation bilaterally. Bilaterally good air entry. No rales or rhonchi. ABDOMEN: Soft. Positive bowel sounds. Nontender. No ascites. No organomegaly. EXTREMITIES: No clubbing or cyanosis. Pulses are 2+. CENTRAL NERVOUS SYSTEM: No focal neurological deficit. Patient is oriented to himself only. The patient follows commands. LAB REVIEW: CBC showed a WBC of 7.1, hemoglobin 10.1. BMP showed sodium 136, potassium 4.2, chloride 98, bicarbonate 29, BUN 52, creatinine 5.8, calcium 8.4, magnesium 2.4. CURRENT MEDICATIONS: Patient's medications were all reviewed by me. There is no change in the medications today as compared with yesterday. ASSESSMENT: 86-year-old male with past medical history of dementia, hypertension, severe aortic stenosis, right sided pleural effusion and end stage renal disease on hemodialysis admitted at this time because of unresponsiveness during hemodialysis. PLAN: 1. Unresponsiveness during hemodialysis. The patient most likely had a hypotensive episode because he has severe aortic stenosis and ultrafiltration might have dropped his blood pressure. Workup is negative so far. Troponins are negative. 2. End stage renal disease on hemodialysis. The patient is being dialyzed according to his regular schedule today. I would decrease the ultrafiltration goal to 1 liter only. 3. Hypertension. Continue current dose of hydralazine. Ultrafiltration would also help improve the blood pressure. 4. Chronic diastolic congestive heart failure. Volume status is well optimized at this time. Ultrafiltration will be only 1 liter because of severe aortic stenosis. 5. Anemia and end stage renal disease. The patient's hemoglobin is 10.1, which is acceptable at this time. The rest of the anemia management is as per outpatient anemia protocol. DISCHARGE PLANNING: It is okay to discharge the patient after dialysis from a nephrology standpoint.
== END 2016-10-01 15:25 ==
LOC: M ED 16:40 → M ED INP 21:27 → M PCU 23:32
PROVIDERS: ADMIT Hospitalist; ATTEND Internal Medicine
DX: R41.82 Altered mental status, unspecified (principal); I50.32 Chronic diastolic (congestive) heart failure; J90 Pleural effusion, not elsewhere classified; I51.7 Cardiomegaly; D63.1 Anemia in chronic kidney disease; N25.81 Secondary hyperparathyroidism of renal origin; I12.0 Hypertensive chronic kidney disease with stage 5 chronic kidney disease or end stage renal disease; I35.0 Nonrheumatic aortic (valve) stenosis; I73.9 Peripheral vascular disease, unspecified; E11.22 Type 2 diabetes mellitus with diabetic chronic kidney disease; N40.0 Benign prostatic hyperplasia without lower urinary tract symptoms; F03.90 Unspecified dementia, unspecified severity, without behavioral disturbance, psychotic disturbance, mood disturbance, and anxiety; I65.29 Occlusion and stenosis of unspecified carotid artery; Z99.2 Dependence on renal dialysis; Z79.899 Other long term (current) drug therapy; Z79.82 Long term (current) use of aspirin; Z79.4 Long term (current) use of insulin; N18.6 End stage renal disease; Z87.891 Personal history of nicotine dependence
CPT/HCPCS: 36415; 70450; 71010; 80048; 80076; 82140; 82550; 82553; 83605; 83735; 84439; 84443; 84484; 85025; 87040; 93005; 93041; 94760; 96372; 99285; G0257; G0378

== ENCOUNTER 2016-12-12 15:22 | Emergency (ER) | payer MEDICARE, BC, MEDICAID ==
[~2016-12-12] VITALS: Ht 175.3 cm; Wt 74.0 kg
[~2016-12-12 15:22] MED LIST changes: +ASPI81TA18 PO; +BISA10SU27 PR; -COLA100C3 PO; +COLA100C5 PO; +ENEM1ENE4 PR; +ENSU-12 PO; +FEVE650S3 PR; +HYDR-3363 PO; +HYDR-3911 PO; -HYDR-4267 PO; -HYDR25T PO; +IPRASOL4 INH; +LEVA1TAB PO; -LEVA250T PO; +LIDO2.5C15 TOP; -METO12TA PO; +METO1TAB87 PO; +NEPRLIQ3 PO; +RENV0.8P PO; +SENN8.6T54 PO; +VITA-182 PO; -VITA100041 PO; +VITA100067 PO
[2016-12-12] MEDS ORDERED: RENV2TAB PO (15:41)
[2016-12-12 17:20] LABS: BASO % 0.5 % (0.0-1.0); EOS # 0.1 K/mm3 (0.0-0.50); EOS % 0.9 % (0.0-3.0); LARGE UNSTAINED CELL # 0.1 K/mm3 (0.0-0.4); LYMPH # 0.7 K/mm3 (1.5-4.5); LYMPH % 7.3 % (24.0-44.0); MEAN CORPUSCULAR HEMOGLOBIN 31.7 pg (27.0-33.0); MEAN CORPUSCULAR HGB CONC 33.1 g/dl (32.0-36.5); MEAN CORPUSCULAR VOLUME 95.9 fl (80.0-96.0); MONO # 0.4 K/mm3 (0.0-0.8); MONO % 4.3 % (0.0-5.0); NEUTROPHILS # 8.4 K/mm3 (1.8-7.7); NEUTROPHILS % 86.1 % (36.0-66.0); PLATELET COUNT, AUTOMATED 219 k/mm3 (150-450); RED CELL DISTRIBUTION WIDTH 13.8 % (11.5-14.5); WHITE BLOOD COUNT 9.7 K/mm3 (4.0-10.0)
[2016-12-12 17:54] LABS: ALBUMIN/GLOBULIN RATIO 0.94 (1.00-1.93); ALKALINE PHOSPHATASE 111 U/L (45-117); ALT/SGPT 13 U/L (12-78); ANION GAP 8 MEQ/L (8-16); AST/SGOT 10 U/L (15-37); BILIRUBIN,DIRECT < 0.1 MG/DL (0.0-0.2); BILIRUBIN,TOTAL 0.3 MG/DL (0.2-1.0); BLOOD UREA NITROGEN 26 MG/DL (7-18); CALCIUM LEVEL 8.3 MG/DL (8.8-10.2); CARBON DIOXIDE LEVEL 35 MEQ/L (21-32); CHLORIDE LEVEL 94 MEQ/L (98-107); CREATININE FOR GFR 2.76 MG/DL (0.70-1.30); GLOMERULAR FILTRATION RATE 23.4 (>35); GLUCOSE, FASTING 203 MG/DL (83-110); POTASSIUM SERUM 3.7 MEQ/L (3.5-5.1); SODIUM LEVEL 137 MEQ/L (136-145); TOTAL PROTEIN 6.2 GM/DL (6.4-8.2)
--- NOTE | 2016-12-12 18:18 | REP ---
AP semi-erect portable chest x-ray: Single view. History: Altered mental status. Cough. Comparison study September 29, 2016. Findings: There is blunting of the right lateral pleural angle indicating small amount of right pleural fluid. Cardiomegaly is observed, unchanged. EKG monitoring electrodes and oxygen delivery tubing are again seen. Impression: Blunted right pleural angle, consistent with right pleural effusion. Mild cardiomegaly. Otherwise no acute disease. Signed by Kwame Benton MD 12/12/2016 07:00 P
--- NOTE | 2016-12-12 19:42 | ECGEPIP ---
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
[2016-12-12] MEDS ORDERED: AMPI500C9 PO (22:09)
[2016-12-12] MEDS ORDERED: AMPICILLIN 250 MG CAP PO ONE (22:15)
[2016-12-12 22:53] VITALS: BP 146/65
== END 2016-12-12 23:42 | disposition home or self-care (01) ==
LOC: EDBD 15:22 → M ED 16:58
DX: I95.9 Hypotension, unspecified (principal); R01.1 Cardiac murmur, unspecified; E11.9 Type 2 diabetes mellitus without complications; I12.0 Hypertensive chronic kidney disease with stage 5 chronic kidney disease or end stage renal disease; I50.30 Unspecified diastolic (congestive) heart failure; N18.6 End stage renal disease; D63.1 Anemia in chronic kidney disease; F03.90 Unspecified dementia, unspecified severity, without behavioral disturbance, psychotic disturbance, mood disturbance, and anxiety; M19.019 Primary osteoarthritis, unspecified shoulder; Z87.891 Personal history of nicotine dependence; Z99.2 Dependence on renal dialysis; Z79.899 Other long term (current) drug therapy; Z79.82 Long term (current) use of aspirin
CPT/HCPCS: 36415; 71010; 80048; 80076; 81001; 82550; 82553; 83605; 84443; 84484; 85025; 87040; 87088; 87186; 93005; 93041; 94760; 99285; P9612

== ENCOUNTER 2016-12-29 15:38 | Emergency (ER) | payer MEDICARE, BC, MEDICAID ==
[~2016-12-29] VITALS: Ht 175.3 cm; Wt 74.5 kg
[~2016-12-29 15:38] MED LIST changes: +AMPI500C9 PO
[2016-12-29 16:36] LABS: BASO % 0.5 % (0.0-1.0); EOS # 0.2 K/mm3 (0.0-0.50); EOS % 2.6 % (0.0-3.0); LARGE UNSTAINED CELL # 0.1 K/mm3 (0.0-0.4); LARGE UNSTAINED CELL % 0.9 % (0.0-4.0); LYMPH # 0.8 K/mm3 (1.5-4.5); LYMPH % 8.5 % (24.0-44.0); MEAN CORPUSCULAR HEMOGLOBIN 31.3 pg (27.0-33.0); MEAN CORPUSCULAR HGB CONC 32.7 g/dl (32.0-36.5); MEAN CORPUSCULAR VOLUME 95.7 fl (80.0-96.0); MONO # 0.3 K/mm3 (0.0-0.8); NEUTROPHILS # 7.1 K/mm3 (1.8-7.7); NEUTROPHILS % 83.5 % (36.0-66.0); PLATELET COUNT, AUTOMATED 206 k/mm3 (150-450); RED CELL DISTRIBUTION WIDTH 13.6 % (11.5-14.5); WHITE BLOOD COUNT 8.5 K/mm3 (4.0-10.0)
--- NOTE | 2016-12-29 16:50 | REP ---
Clinical: Syncope. Comparison: 09/29/2016 . Findings: Age-related atrophy and microvascular ischemic changes are appreciated. The ventricles and sulci are symmetric. Gutierrez-white differentiation is maintained. There is no evidence for acute intracranial hemorrhage, mass/mass effect, pathology or infarction. No extra-axial fluid collection. Calvarium is intact. Paranasal sinuses and mastoid air cells are clear. Impression: Age related atrophy and microvascular ischemic changes. No acute intracranial hemorrhage, infarction, or mass/mass effect. Signed by Grey Jacobson MD 12/29/2016 04:42 P
--- NOTE | 2016-12-29 16:57 | REP ---
Clinical: Syncope. Comparison: 12/12/2016. Findings: Examination is limited by portable technique and poor inspiratory effort. The mediastinum and cardiac silhouette are stable. Lung ortiz demonstrate chronic interstitial changes and bibasilar pleuroparenchymal changes.. Superimposed moderate right pleural effusion and bibasilar atelectasis cannot be excluded. No pneumothorax. Skeletal structures intact. Impression: Limited examination due to poor inspiratory effort. Bilateral chronic pleuroparenchymal changes. Cannot exclude superimposed pleural effusion and atelectasis. Signed by Grey Jacobson MD 12/29/2016 04:48 P
[2016-12-29 17:09] LABS: CREATININE FOR GFR 2.97 MG/DL (0.70-1.30); GLOMERULAR FILTRATION RATE 21.5 (>35); POTASSIUM SERUM 3.7 MEQ/L (3.5-5.1)
[2016-12-29] MEDS ORDERED: NS 250 ML IV ONE (19:00)
[2016-12-29 19:03] VITALS: BP 192/82
--- NOTE | 2016-12-30 14:48 | ECGEPIP ---
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
== END 2016-12-29 20:28 | disposition home or self-care (01) ==
LOC: EDBD 15:38 → M ED 15:38
DX: R55 Syncope and collapse (principal); R41.82 Altered mental status, unspecified; I48.91 Unspecified atrial fibrillation; Z99.2 Dependence on renal dialysis; N19 Unspecified kidney failure; I06.0 Rheumatic aortic stenosis; Z79.899 Other long term (current) drug therapy; Z79.2 Long term (current) use of antibiotics; Z79.82 Long term (current) use of aspirin

== ENCOUNTER → 2017-03-07 | Outpatient (REF) | payer MEDICARE, BC, MEDICAID ==
[2017-03-07 12:48] LABS: MEAN CORPUSCULAR HEMOGLOBIN 32.7 pg (27.0-33.0); MEAN CORPUSCULAR HGB CONC 34.2 g/dl (32.0-36.5); MEAN CORPUSCULAR VOLUME 95.5 fl (80.0-96.0); RED CELL DISTRIBUTION WIDTH 13.8 % (11.5-14.5); WHITE BLOOD COUNT 6.2 K/mm3 (4.0-10.0)
[2017-03-07 12:59] LABS: CREATININE FOR GFR 3.43 MG/DL (0.70-1.30); GLOMERULAR FILTRATION RATE 18.1 (>35); POTASSIUM SERUM 3.5 MEQ/L (3.5-5.1)
== END ==
LOC: M LAB 08:00
PROVIDERS: ATTEND Internal Medicine
DX: R19.7 Diarrhea, unspecified (principal)

== ENCOUNTER → 2017-04-02 | Outpatient (REF) | payer MEDICARE, BC, MEDICAID ==
--- NOTE | 2017-04-02 15:56 | REP ---
RIGHT SHOULDER: Two limited views of the right shoulder are performed. There appears to be a nondisplaced fracture of the distal end of the clavicle. The acromioclavicular joint is still well aligned. There is no other evidence of acute fracture or dislocation. Signed by Ludin Gutierrez MD 04/02/2017 07:16 P
== END ==
PROVIDERS: ATTEND Physician Assistant
DX: S42.001A Fracture of unspecified part of right clavicle, initial encounter for closed fracture (principal); X58.XXXA Exposure to other specified factors, initial encounter; Y92.9 Unspecified place or not applicable; Y93.9 Activity, unspecified; Y99.9 Unspecified external cause status

== ENCOUNTER → 2017-07-09 | Outpatient (CLI) | payer MEDICARE, BC, MEDICAID ==
[~2017-07-09] MED LIST changes: -/MEMA10TA PO; -ALLO300T2 PO; -AMLO10TA2 PO; -AMLO25TA PO; -AMPI500C9 PO; -APRESOLINE PO; -ASPI1TAB PO; -ASPI81TA18 PO; -ASPI81TA4 PO; -ASPI81TAEC PO; -BISA10SU PR; -BISA10SU27 PR; -CALC0.25 PO; -CERETAB PO; -CERTTAB3 PO; -CLONI1TA TOP; -COLA100C5 PO; -COZA50TA PO; -DARB100SYR IV; -DONETAB5 PO; -DONETAB6 PO; -ENEM1ENE4 PR; -ENSU-12 PO; -ESCI10TA2 PO; -ESCI5TAB PO; -FEBU40TA PO; -FERR325T3 PO; -FEVE650S3 PR; -FINA5TAB2 PO; -FURO40TA2 PO; -GLYB5TAB5 PO; -HYDR-3363 PO; -HYDR-3911 PO; -HYDR10TAB PO; -HYDR50TA PO; -IPRA1SOL47 NEB; -IPRASOL4 INH; -IPRASOL4 NEB; +ISOVUE-300 61% 50ML VIAL (Q9967) As Ordered; -LEVA1TAB PO; -LIDO2.5C15 TOP; +LIDOCAINE 2% INJ 100 MG/5 ML SDV (FOR ANES.) As Ordered; -LOSA100T36 PO; -METO-346 PO; -METO1TAB87 PO; -MILKSUS PO; -MIRT15TA3 PO; -NAME5TAB13 PO; -NEPHTAB PO; -NEPRLIQ3 PO; -RENATAB5 PO; -RENV0.8P PO; -RENV2TAB PO; -SENN1TAB2 PO; -SENN8.6T54 PO; -SIMV40TA2 PO; -TAMS0.4C PO; -TYLE325T5 PO; -VITA-182 PO; -VITA100067 PO; -nephrovite PO
== END | disposition home or self-care (01) ==
LOC: M IRPRO 09:35
DX: T82.838A Hemorrhage due to vascular prosthetic devices, implants and grafts, initial encounter (principal); N18.6 End stage renal disease; Z99.2 Dependence on renal dialysis
CPT/HCPCS: 36901

== ENCOUNTER → 2017-09-22 | Outpatient (CLI) | payer MEDICARE, BC, MEDICAID | LOC: M RAD 08:00 | DX: R91.8 Other nonspecific abnormal finding of lung field (principal); I51.7 Cardiomegaly | CPT/HCPCS: 71045 ==

== ENCOUNTER 2017-09-23 15:22 | Emergency (ER) | payer MEDICARE, BC, MEDICAID ==
[2017-09-23 16:40] LABS: BASO % 0.2 % (0.0-1.0); EOS % 0.1 % (0.0-3.0); HEMOGLOBIN 11.8 g/dl (14.0-18.0); IMMATURE GRANULOCYTE % 0.4 % (0-3.0); LYMPH # 0.3 10^3/uL (1.5-4.5); LYMPH % 2.1 % (24.0-44.0); MEAN CORPUSCULAR HEMOGLOBIN 29.6 pg (27.0-33.0); MEAN CORPUSCULAR HGB CONC 31.9 g/dl (32.0-36.5); MONO # 0.5 10^3/uL (0.0-0.8); MONO % 3.7 % (0.0-5.0); NEUTROPHILS # 13.6 10^3/uL (1.8-7.7); NEUTROPHILS % 93.5 % (36.0-66.0); PLATELET COUNT, AUTOMATED 237 10^3/uL (150-450); RED BLOOD COUNT 3.98 10^6/uL (4.30-6.10); RED CELL DISTRIBUTION WIDTH 14.9 % (11.5-14.5); WHITE BLOOD COUNT 14.5 10^3/uL (4.0-10.0)
[2017-09-23 17:06] LABS: ALBUMIN 3.1 GM/DL (3.2-5.2); ALBUMIN/GLOBULIN RATIO 0.78 (1.00-1.93); ALKALINE PHOSPHATASE 135 U/L (45-117); ALT/SGPT 16 U/L (12-78); ANION GAP 5 MEQ/L (8-16); AST/SGOT 13 U/L (7-37); BILIRUBIN,TOTAL 0.6 MG/DL (0.2-1.0); BLOOD UREA NITROGEN 23 MG/DL (7-18); CARBON DIOXIDE LEVEL 34 MEQ/L (21-32); CHLORIDE LEVEL 99 MEQ/L (98-107); CREATININE FOR GFR 2.72 MG/DL (0.70-1.30); GLOMERULAR FILTRATION RATE 23.7 (>35); GLUCOSE, FASTING 185 MG/DL (70-100); POTASSIUM SERUM 3.9 MEQ/L (3.5-5.1); SODIUM LEVEL 138 MEQ/L (136-145); TOTAL PROTEIN 7.1 GM/DL (6.4-8.2)
[2017-09-23 17:06] LABS: LACTIC ACID SEPSIS PROTOCOL 1.9 MMOL/L (0.4-2.0)
[2017-09-23] MEDS: CEFTRIAXONE SOD 1 GM in APPROPRIATE DILUENT 1 EA IV (18:55)
[2017-09-23] MEDS: ACETAMINOPHEN TAB 650MG DOSE (2X325MG) PO (18:55)
== END 2017-09-23 21:05 | disposition home or self-care (01) ==
LOC: M ED 15:22
DX: J18.9 Pneumonia, unspecified organism (principal); N18.6 End stage renal disease; Z99.2 Dependence on renal dialysis; I50.9 Heart failure, unspecified; E11.9 Type 2 diabetes mellitus without complications; I10 Essential (primary) hypertension; F03.90 Unspecified dementia, unspecified severity, without behavioral disturbance, psychotic disturbance, mood disturbance, and anxiety; I35.0 Nonrheumatic aortic (valve) stenosis; E21.3 Hyperparathyroidism, unspecified; Z79.82 Long term (current) use of aspirin; Z79.899 Other long term (current) drug therapy
CPT/HCPCS: J0696

== ENCOUNTER → 2017-09-25 | Outpatient (REF) | payer MEDICARE, BC, MEDICAID ==
[2017-09-25 10:18] LABS: HEMOGLOBIN 11.6 g/dl (13.5-17.5); MEAN CORPUSCULAR HEMOGLOBIN 29.3 pg (27.0-33.0); MEAN CORPUSCULAR HGB CONC 31.4 g/dl (32.0-36.5); MEAN CORPUSCULAR VOLUME 93.4 fl (80.0-96.0); PLATELET COUNT, AUTOMATED 258 10^3/uL (150-450); RED BLOOD COUNT 3.96 10^6/uL (4.30-6.10); RED CELL DISTRIBUTION WIDTH 15.1 % (11.5-14.5)
== END ==
DX: J18.9 Pneumonia, unspecified organism (principal)
CPT/HCPCS: 85027

== ENCOUNTER → 2017-09-28 | Outpatient (REF) | payer MEDICARE, BC, MEDICAID ==
[2017-09-28 12:27] LABS: HEMATOCRIT 32.2 % (42.0-52.0); MEAN CORPUSCULAR HEMOGLOBIN 28.9 pg (27.0-33.0); MEAN CORPUSCULAR HGB CONC 31.1 g/dl (32.0-36.5); MEAN CORPUSCULAR VOLUME 93.1 fl (80.0-96.0); PLATELET COUNT, AUTOMATED 231 10^3/uL (150-450); RED BLOOD COUNT 3.46 10^6/uL (4.30-6.10); RED CELL DISTRIBUTION WIDTH 15.1 % (11.5-14.5); WHITE BLOOD COUNT 13.7 10^3/uL (4.0-10.0)
== END ==
DX: J18.9 Pneumonia, unspecified organism (principal)
CPT/HCPCS: 85027

== ENCOUNTER → 2017-12-14 | Outpatient (REF) | payer MEDICARE, BC, MEDICAID ==
[2017-12-14 11:07] LABS: HEMATOCRIT 33.2 % (42.0-52.0); HEMOGLOBIN 10.5 g/dl (13.5-17.5); MEAN CORPUSCULAR HEMOGLOBIN 29.2 pg (27.0-33.0); MEAN CORPUSCULAR HGB CONC 31.6 g/dl (32.0-36.5); MEAN CORPUSCULAR VOLUME 92.5 fl (80.0-96.0); PLATELET COUNT, AUTOMATED 198 10^3/uL (150-450); RED BLOOD COUNT 3.59 10^6/uL (4.30-6.10); RED CELL DISTRIBUTION WIDTH 15.1 % (11.5-14.5); WHITE BLOOD COUNT 16.7 10^3/uL (4.0-10.0)
[2017-12-14 11:20] LABS: ANION GAP 9 MEQ/L (8-16); APPEARANCE, URINE MANUAL TURBID (CLEAR); BLOOD UREA NITROGEN 53 MG/DL (7-18); CALCIUM LEVEL 9.2 MG/DL (8.8-10.2); CARBON DIOXIDE LEVEL 30 MEQ/L (21-32); CHLORIDE LEVEL 97 MEQ/L (98-107); CREATININE FOR GFR 4.37 MG/DL (0.70-1.30); GLOMERULAR FILTRATION RATE 13.7 (>35); GLUCOSE, FASTING 259 MG/DL (70-100); POTASSIUM SERUM 4.3 MEQ/L (3.5-5.1); SODIUM LEVEL 136 MEQ/L (136-145)
[2017-12-14 11:21] LABS: BILIRUBIN, URINE MANUAL NEGATIVE (NEGATIVE); BLOOD URINE MANUAL POSITIVE (NEGATIVE); COLOR, URINE MANUAL YELLOW (YELLOW); GLUCOSE, URINE (UA) MANUAL NEGATIVE (NEGATIVE); KETONE, URINE MANUAL NEGATIVE (NEGATIVE); LEUKOCYTE ESTERASE, URINE MAN POSITIVE (NEGATIVE); MICROSCOPIC INDICATED? MAN YES (NO); NITRITE, URINE MANUAL NEGATIVE (NEGATIVE); PH,URINE MAN 6.5 UNITS (5.0 - 7.0); PROTEIN, URINE MANUAL 3+ mg/dL (NEGATIVE); SPECIFIC GRAVITY,URINE MANUAL 1.015 (1.002-1.035); UROBILINOGEN, URINE MANUAL NORMAL (NORMAL)
[2017-12-14 11:33] LABS: BACTERIA, URINE MOD AMOUNT; HYALINE CAST, URINE NONE SEEN /lpf (0-1); MICROSCOPIC EXAM PERFORMED; RBC, URINE NONE SEEN /hpf (0-3); SQUAMOUS EPITHELIAL CELL URINE NONE SEEN /hpf (SMALL AMT); WBC, URINE TNTC /hpf (0-3)
== END ==
DX: R50.9 Fever, unspecified (principal); R41.82 Altered mental status, unspecified
CPT/HCPCS: 80048